=== PATIENT | female | born 1955 | race Caucasian/White ===

== ENCOUNTER → 2017-01-10 | Outpatient (CLI) | payer BC ==
--- NOTE | 2017-01-10 12:17 | RADIOLOGY REPORT PS360 ---
BONE DENSITOMETRY(HIP:LT SPINE HISTORY: POST MENOPAUSAL ORDERING PHYSICIAN: Frandy Gayle MD PATIENT AGE: 61 years COMPARISON: None FINDINGS: The lowest bone density lumbar spine is at L2 at 0.852 g percent meters squared with a T score of -2.3 consistent with osteopenia. The mean density of the hips is 0.848 g percent meters squared with a T score of -1.4 consistent with osteopenia. This is considered Osteopenic according to the World Health Organization criteria. Fracture risk is Moderate. Treatment is advised. IMPRESSION: Osteopenia of the lumbar spine and hips
== END ==
LOC: RAD 09:12
DX: Z78.0 Asymptomatic menopausal state (principal)

== ENCOUNTER → 2017-10-31 | Outpatient (CLI) | payer BC ==
--- NOTE | 2017-10-31 13:16 | CARDIOVASCULAR REPORT ---
"Venous Exam Indications: 729.5 Pain in limb. IMPRESSIONS 1. There is no evidence of significant Reflux. 2. Deep vein thrombosis involving the Left posterior tib and DVT of calf vein Left lower extremity venous duplex evaluation. Doppler flow study including spectral analysis, color and vigil scale imaging. Location: Vascular laboratory. Patient status: Outpatient. CRITICAL FINDINGS - Reported to: Irwin - Read back and verified. - 10/31/17 - 1230 - DVT PTV,Calf vein Tables: Venous flow and imaging: + + + + |Location |Overall |Flow properties | + + + + |Left common femoral |Patent |Normal phasicity; | | | |spontaneous; normal | | | |augmentation; | | | |compressible | + + + + |Left saphenofemoral |Patent |Compressible | |junction | | | + + + + |Left profunda femoral |Patent |Compressible | + + + + |Left femoral |Patent |Normal phasicity; | | | |spontaneous; normal | | | |augmentation; | | | |compressible | + + + + |Left greater saphenous |Patent |Normal phasicity; | | | |spontaneous; normal | | | |augmentation; | | | |compressible | + + + + |Left popliteal |Patent |Normal phasicity; | | | |spontaneous; normal | | | |augmentation; | | | |compressible | + + + + |Left posterior tibial |Partially occluded|Partially compressible | + + + + |Left peroneal |Patent |Compressible | + + + + |Left gastrocnemius |Partially occluded|Partially compressible | + + + + |Left soleal |Patent |Compressible | + + + + (Report amended ) Electronically signed by: Silvio Cruz [id number]"
--- NOTE | 2017-10-31 13:38 | RADIOLOGY REPORT PS360 ---
KNEE-3 VIEWS-LT HISTORY: PAIN LT LOWER LEG ORDERING PHYSICIAN: Frandy Gayle MD PATIENT AGE: 62 years COMPARISON: None FINDINGS: No fracture or dislocation. No lytic or blastic change. Normal mineralization. No significant arthritic changes evident. There is minimal osteophytes along the posterior patella superiorly No other significant findings IMPRESSION: Minimal degenerative change, no acute finding
--- NOTE | 2017-10-31 13:39 | RADIOLOGY REPORT PS360 ---
LOWER LEG-LT HISTORY: PAIN LT LOWER LEG ORDERING PHYSICIAN: Frandy Gayle MD PATIENT AGE: 62 years COMPARISON: None FINDINGS: No fracture or dislocation. No lytic or blastic change. There is normal mineralization. The joint spaces are well-preserved. No significant degenerative/arthritic changes. No erosive changes evident. IMPRESSION: Negative left tib-fib
== END ==
LOC: RAD 12:22
DX: M79.605 Pain in left leg (principal)